=== PATIENT | female | born 1940 | race Caucasian/White ===

== ENCOUNTER → 2020-07-27 | Day surgery (SDC) | payer MEDICARE, OTHER ==
[~2020-07-27] MED LIST: AMLODIPINE-BEN1 EAC2 PO; DOCUSATE SODIU250 MG PO; ECOTRIN81 MG PO; HYDROCODONE-AC1 EACH PO; IBUPROFEN600 MG PO; LOSARTAN POTASS50 MG PO; MONTELUKAST SOD10 MG PO; PROTONIX 40 MG40 M1 PO
[2020-07-27 10:36] LABS: HEMOGLOBIN 10.8 gm/dl (12.3-15.3); RED BLOOD COUNT 4.58 M/UL (4.00-5.10); WHITE BLOOD COUNT 7.3 K/UL (4.5-11.0)
== END | disposition home or self-care (01) ==
LOC: OR 06-22 12:45
PROVIDERS: Obstetrics & Gynecology
DX: N81.10 Cystocele, unspecified (principal); N81.6 Rectocele; I10 Essential (primary) hypertension; Z90.710 Acquired absence of both cervix and uterus; Z79.899 Other long term (current) drug therapy
CPT/HCPCS: 36415; 71045; 81001; 85025; 93005; C1769; J0690; J1100; J2001; J2370; J2405; J2704; J3010; J7050; J7120